=== PATIENT | female | born 1995 | race Caucasian/White ===

== ENCOUNTER 2016-10-27 09:21 | Day surgery (SDC) | payer MEDICAID ==
[~2016-10-27] VITALS: Ht 165.1 cm; Wt 73.0 kg
[2016-10-27] MEDS ORDERED: IOHEXOL-300 100 ML BOTTLE ONE (10:17)
[2016-10-27] MEDS ORDERED: SODIUM CHLORIDE 0.9% 10ML VIAL ONE (10:17)
[2016-10-27] MEDS ORDERED: MORPHINE SULFATE 4 MG/ML CPJ (NOT FOR IM USE) IV STA (10:25)
[2016-10-27] MEDS ORDERED: ONDANSETRON HCL 4MG/2ML VIAL IV STA (10:25)
[2016-10-27] MEDS ORDERED: SODIUM CHLORIDE 0.9% 1,000 ML IV ONE (10:25)
[2016-10-27 10:48] LABS: BASOPHILS % 0.2 % (0.0-2.0); HEMATOCRIT. 37.6 % (36.0-48.0); HEMOGLOBIN. 12.7 g/dL (12.0-16.0); LYMPHOCYTES % 14.4 % (20.0-50.0); MONOCYTES % 6.9 % (2.0-8.0); NEUTROPHILS % 77.5 % (40.0-76.0); PLATELET 268 x1000/uL (130-400); RED BLOOD CELL COUNT 4.52 mill/uL (4.2-5.4); RED CELL DISTRIBUTION WIDTH 13.8 % (11.6-14.6)
[2016-10-27 10:56] LABS: PROTHROMBIN TIME 10.6 sec
[2016-10-27 11:03] LABS: CARBON DIOXIDE 28 mEq/L (21-32); CHLORIDE 105 mEq/L (98-107)
[2016-10-27 11:17] LABS: CLARITY URINE CLOUDY (CLEAR); COLOR URINE YELLOW (YELLOW); GLUCOSE URINE NEGATIVE (NEGATIVE); KETONES URINE 2+ (NEGATIVE); LEUKOCYTE ESTERASE URINE 2+ (NEGATIVE); NITRITE URINE NEGATIVE (NEGATIVE); OCCULT BLOOD URINE NEGATIVE (NEGATIVE); PH URINE >=9.0 (4.5-8.0); PROTEIN URINE TRACE (NEGATIVE); SPECIFIC GRAVITY URINE 1.023 (1.005-1.030)
[2016-10-27 12:03] LABS: HCG SCREEN NEGATIVE
[2016-10-27] MEDS ORDERED: PIPERACILLIN/TAZOBACTAM 3.375GM/50ML PREMIX IV ONE (12:45)
[2016-10-27] MEDS ORDERED: PIPERACILLIN/TAZ 3.375G PREMIX 50 ML IV ONE (12:47)
[2016-10-27] MEDS ORDERED: BUPIVACAINE HCL 0.5% (5MG/ML) 50ML ONE (12:52)
[2016-10-27] MEDS ORDERED: MORPHINE SULFATE 4 MG/ML CPJ (NOT FOR IM USE) IV ONE (13:15)
[2016-10-27] MEDS ORDERED: SKIN ADHESIVE 0.7 GM EA TOP ONE (13:21)
[2016-10-27] MEDS ORDERED: ONDANSETRON HCL 4MG/2ML VIAL IV PRN ×2 (15:00→17:15)
[2016-10-27] MEDS ORDERED: HYDROMORPHONE HCL/PF 2MG/ML CPJ IV PRN ×2 (15:00→17:30)
[2016-10-27] MEDS ORDERED: LABETALOL HCL 20MG/4ML CARPUJECT IV PRN (15:00)
[2016-10-27] MEDS ORDERED: MEPERIDINE HCL/PF 25MG/ML CPJ IV PRN (15:00)
[2016-10-27 15:56] VITALS: BP 103/65
[2016-10-27] MEDS ORDERED: DEXT 5%/0.45% NACL KCL 20MEQ/L 1,000 ML IV SCH (17:12)
[2016-10-27] MEDS ORDERED: IPRATROPIUM/ALBUTEROL 0.5-3(2.5)MG/3ML NEB INH PRN (17:15)
[2016-10-27] MEDS ORDERED: CLONIDINE 0.1MG TABLET PO PRN (17:15)
[2016-10-27] MEDS ORDERED: DIPHENHYDRAMINE 50MG/ML VIAL IV PRN (17:15)
[2016-10-27] MEDS ORDERED: PIPERACILLIN/TAZ 3.375G PREMIX 50 ML IV SCH (17:15)
[2016-10-27] MEDS ORDERED: ONDANSETRON HCL 4MG/2ML VIAL ONE (17:19)
[2016-10-27] MEDS ORDERED: MORPHINE SULFATE 4 MG/ML CPJ (NOT FOR IM USE) IV PRN (17:30)
== END 2016-10-27 17:35 | disposition home or self-care (01) ==
LOC: ER 09:22 → OR 11:00 → UNDOADMIN 13:12 → 6EST 13:12 → ENRESERV 13:43 → 6EST 16:08 → ORIP 16:08 → 6EST 16:30 → OR 17:35
PROVIDERS: ATTEND Surgery
DX: K35.80 Unspecified acute appendicitis (principal); N39.0 Urinary tract infection, site not specified; Z90.49 Acquired absence of other specified parts of digestive tract
CPT/HCPCS: 36415; 44970; 74177; 80053; 81001; 81025; 83690; 84703; 85025; 85610; 88304; 96361; 96365; 96375; 96376; 99285; A4216; G0168; J1170; J2270; J2405; J2543; J3490; J7030; Q9967

== ENCOUNTER 2017-06-05 02:13 | Emergency (ER) | payer MEDICAID ==
[~2017-06-05] VITALS: Ht 162.6 cm; Wt 73.0 kg
[2017-06-05] MEDS ORDERED: MAGNESIUM/ALUMINUM HYDROXIDE/SIMETHICONE 30ML UDC PO STA (07:10)
[2017-06-05] MEDS ORDERED: VISCOUS LIDOCAINE 2% 15 ML UDC PO STA (07:10)
[2017-06-05 07:35] LABS: CLARITY URINE CLEAR (CLEAR); COLOR URINE YELLOW (YELLOW); KETONES URINE NEGATIVE (NEGATIVE); LEUKOCYTE ESTERASE URINE NEGATIVE (NEGATIVE); NITRITE URINE NEGATIVE (NEGATIVE); OCCULT BLOOD URINE NEGATIVE (NEGATIVE); PROTEIN URINE NEGATIVE (NEGATIVE); SPECIFIC GRAVITY URINE 1.041 (1.005-1.030); UROBILINOGEN URINE 0.2 E.U./dL (0.2-1.0)
[2017-06-05 07:47] LABS: BASOPHILS % 0.4 % (0.0-2.0); EOSINOPHILS % 1.7 % (0.0-5.0); HEMATOCRIT. 37.1 % (36.0-48.0); HEMOGLOBIN. 12.3 g/dL (12.0-16.0); LYMPHOCYTES % 42.1 % (20.0-50.0); MEAN CORPUSCULAR HEMOGLOBIN 28.2 pg (28.0-32.0); MEAN CORPUSCULAR VOLUME 84.8 fL (81.0-99.0); MEAN PLATELET VOLUME 8.1 fl (7.4-10.4); MONOCYTES % 6.1 % (2.0-8.0); NEUTROPHILS % 49.7 % (40.0-76.0); PLATELET 307 x1000/uL (130-400); RED BLOOD CELL COUNT 4.37 mill/uL (4.2-5.4); RED CELL DISTRIBUTION WIDTH 13.8 % (11.6-14.6)
[2017-06-05 08:01] LABS: CHLORIDE 107 mEq/L (98-107)
[2017-06-05] MEDS ORDERED: MORPHINE SULFATE 4 MG/ML CPJ (NOT FOR IM USE) IV ONE (09:45)
[2017-06-05] MEDS ORDERED: PANTOPRAZOLE SODIUM 40 MG/VIAL IV ONE (09:45)
[2017-06-05] MEDS ORDERED: ONDANSETRON HCL 4MG/2ML VIAL IV ONE (09:45)
[2017-06-05 11:54] VITALS: BP 94/67
== END 2017-06-05 12:02 | disposition home or self-care (01) ==
LOC: ER 02:13
DX: K29.70 Gastritis, unspecified, without bleeding (principal)
CPT/HCPCS: 36415; 76705; 80053; 81003; 81025; 83690; 85025; 96374; 96375; 99285; C9113; J2270; J2405; Z7610

== ENCOUNTER 2017-08-20 07:20 | Emergency (ER) | payer MEDICAID ==
[~2017-08-20] VITALS: Ht 162.6 cm; Wt 73.0 kg
[2017-08-20] MEDS ORDERED: KETOROLAC 30MG/ML VIAL IV STA (07:41)
[2017-08-20] MEDS ORDERED: ONDANSETRON HCL 4MG/2ML VIAL IV STA (07:41)
[2017-08-20] MEDS ORDERED: SODIUM CHLORIDE 0.9% 500 ML IV ONE (07:41)
[2017-08-20 08:10] LABS: CLARITY URINE CLOUDY (CLEAR); COLOR URINE YELLOW (YELLOW); KETONES URINE TRACE (NEGATIVE); LEUKOCYTE ESTERASE URINE 1+ (NEGATIVE); NITRITE URINE NEGATIVE (NEGATIVE); OCCULT BLOOD URINE NEGATIVE (NEGATIVE); PH URINE >=9.0 (4.5-8.0); PROTEIN URINE 2+ (NEGATIVE); SPECIFIC GRAVITY URINE 1.027 (1.005-1.030)
[2017-08-20 08:14] LABS: BASOPHILS % 0.2 % (0.0-2.0); EOSINOPHILS % 0.4 % (0.0-5.0); HEMATOCRIT. 37.4 % (36.0-48.0); HEMOGLOBIN. 12.8 g/dL (12.0-16.0); LYMPHOCYTES % 17.2 % (20.0-50.0); MEAN CORPUSCULAR HEMOGLOBIN 28.9 pg (28.0-32.0); MEAN CORPUSCULAR VOLUME 84.6 fL (81.0-99.0); MEAN PLATELET VOLUME 7.9 fl (7.4-10.4); MONOCYTES % 4.1 % (2.0-8.0); NEUTROPHILS % 78.1 % (40.0-76.0); PLATELET 312 x1000/uL (130-400); RED BLOOD CELL COUNT 4.42 mill/uL (4.2-5.4)
[2017-08-20 08:16] LABS: CHLORIDE 105 mEq/L (98-107)
[2017-08-20] MEDS ORDERED: MORPHINE SULFATE 4 MG/ML CPJ (NOT FOR IM USE) IV ONE ×2 (08:30→09:45)
[2017-08-20 08:48] LABS: PROTHROMBIN TIME 10.6 sec (9.4-11.6)
[2017-08-20 08:57] LABS: HCG SCREEN NEGATIVE
[2017-08-20] MEDS ORDERED: IOHEXOL-350 100 ML BOTTLE ONE (09:18)
[2017-08-20] MEDS ORDERED: HALOPERIDOL LACTATE 5MG/ML VIAL IM ONE (09:45)
[2017-08-20 10:36] VITALS: BP 110/62
== END 2017-08-20 10:37 | disposition home or self-care (01) ==
LOC: ER 07:20
DX: K52.9 Noninfective gastroenteritis and colitis, unspecified (principal)
CPT/HCPCS: 36415; 74177; 80053; 81003; 83690; 84703; 85025; 85610; 96361; 96372; 96374; 96375; 99285; J1630; J1885; J2270; J2405; J7030; J7040; Q9967; Z7610

== ENCOUNTER 2017-08-21 01:14 | Emergency (ER) | payer MEDICAID ==
[~2017-08-21] VITALS: Ht 162.6 cm; Wt 75.2 kg
[2017-08-21] MEDS ORDERED: ONDANSETRON 4MG ODT PO ONE (03:15)
[2017-08-21] MEDS ORDERED: HALOPERIDOL LACTATE 5MG/ML VIAL IM ONE (03:15)
[2017-08-21] MEDS ORDERED: DICYCLOMINE HCL 10MG CAPSULE PO ONE (03:15)
[2017-08-21 04:17] VITALS: BP 122/66
== END 2017-08-21 04:21 | disposition home or self-care (01) ==
LOC: ER 01:14
DX: K52.9 Noninfective gastroenteritis and colitis, unspecified (principal); Z90.49 Acquired absence of other specified parts of digestive tract
CPT/HCPCS: 81025; 96372; 99283; J1630; Q0162; Z7610